=== PATIENT | male | born 1995 | race Caucasian/White ===

== ENCOUNTER → 2019-12-04 14:53 | Outpatient (CLI) | payer BC, SELFPAY ==
[2019-12-04 15:51] LABS: Chloride 100 mmol/L (98-107); Potassium 4.3 mmoL/L (3.5-5.1); Sodium 137 mmol/L (136-145)
[2019-12-04 15:53] LABS: Blood Urea Nitrogen 13 mg/dl (9-20); Estimated Glomerular Filt Rate 141 ml/min (>60); GFR (African American) 171 ML/MIN (>60)
[2019-12-04 15:54] LABS: Alanine Aminotransferase 13 U/L (12-78); Albumin Level 4.9 g/dl (3.5-5.0); Albumin/Globulin Ratio 1.9 (1.1-1.8); Alkaline Phosphatase 55 U/L (38-126); Anion Gap 12.3 mEq/L (5-15); Aspartate Amino Transferase 22 U/L (17-59); Bilirubin,Total 0.3 mg/dl (0.2-1.3); Carbon Dioxide 29 mmol/L (22.0-30.0); Globulin 2.6 g/dL (1.3-3.2); Glucose 92 mg/dl (74-100); Total Protein,Serum 7.5 g/dl (6.3-8.2)
[2019-12-06 06:29] LABS: Hep A Ab, IgM Negative (Negative); Hepatitis B Core Antibody IgM Negative (Negative); Hepatitis B Surface Antigen Negative (Negative)
[2019-12-06 07:38] LABS: HIV Screen 4th Generation wRfx Non Reactive (Non Reactive); Hepatitis C Antibody 0.1 s/co ratio (0.0-0.9)
[2019-12-06 16:10] LABS: Rapid Plasma Reagin Ab Titer Non Reactive (NonRea<1:1)
[2019-12-08 13:59] LABS: Neisseria gonorrhoeae, NAA Negative (Negative)
== END ==
PROVIDERS: Visit Provider Internal Medicine Adolescent Medicine
DX: Z72.51 High risk heterosexual behavior (principal)
CPT/HCPCS: 36415; 80053; 80074; 86592; 86703; 87491; 87591; G0432

== ENCOUNTER 2020-05-28 18:16 | Emergency (ER) | payer BC, SELFPAY ==
[2020-05-28 19:14] VITALS: BP 118/65; PULSE 94; RESP 18; TEMP 37.3; O2SAT 97; BMI 25.0
--- NOTE | 2020-05-28 19:18 | HMH.EDUTC ---
[facility] [place] Disposition Clinical Impression: Strep throat Disposition: Home, Self-Care Condition on Discharge: Good Instructions: Strep Throat, DI for Strep Throat, DI for Fever (Symptom) -- Adult, Preventing the Spread of Coronavirus Discharge Instructions Additional Instructions: *Monitor Temp, Over the counter Motrin or Tylenol as directed/as needed Tylenol every 4 hours and Motrin every 6 hours (as long as your family doctor has told you that you can take it) for fever or pain. and straight to ER if unable to lower temp less than 101.0 after medication given *Warm salt water gargles may help to soothe the throat *Throat Lozenges *Warm fluids like tea with honey may help to soothe the throat *Sleep elevated *Humidifier/Vaporizer *Flonase 2 sprays in each nostril daily but be aware that it may take 2-3 days before you notice improvement You was tested for COVID you can call back to the [facility] on Sunday to see if your test results are back and the result Follow instructions on handout for self quarantine and self isolation while awaiting your test results Your throat swab was sent for culture. Those results are typically sent to your primary care. Be sure to follow up in 2-3 days with your family doctor/primary care physician if no improvement so they can review those result and treat if necessary. If you don?t have a primary care doctor, I recommend you get one but in the mean time, you will have to return to a walk in clinic Follow up IMMEDIATELY for new or worsening symptoms or no Noticeable improvement over the next 48-72 hours. 911 for difficulty breathing or swallowing *If you did not take Penicillin shot or was unable to, start taking antibiotic immediately and make sure that you take it for the FULL length of time although you should start to feel better in 24-48 hours *change toothbrush and toothpaste 24-48 hours after starting to take antibiotics so you do not reinfect yourself Monitor Temp. Tylenol and/or Ibuprofen as needed. ER if fever is no less than 101 despite alternating Tylenol and Ibuprofen * Encourage fluids, water, Gatorade, powerade, pedialyte if infant/toddler/or child *Cold fluids, popsicles and ice cream may feel good on his throat Referrals: Reuben Epstein MD [Primary Care Provider] - As needed Forms: Work/School Release Medical Decision Making - Nael Inquiry Pt receiving controlled substance: No Nael was queried for this patient: No Vital Signs: 05/28/20 19:14 05/28/20 19:19 Temperature 99.1 F 99.1 F Temperature Source Oral Pulse Rate 94 H Pulse Rate [Right] 94 H Respiratory Rate 18 18 Blood Pressure 118/65 Blood Pressure [Right Arm] 118/65 Blood Pressure Mean [Right Arm] 82 Blood Pressure Source [Right Arm] Automatic Cuff Blood Pressure Position [Right Arm] Sitting 02 Sat by Pulse Oximetry 97 Oxygen Delivery Method Room Air - Lab Data Lab results reviewed: Yes: I reviewed the patient's lab results. Lab Results 05/28/20 19:24: Strep Scn Rapid Clinic Positive A Orders (Tests/Meds): ED MEDICATIONS Discontinued Medications Generic Name Dose Route Start Last Admin Trade Name Freq PRN Reason Stop Dose Admin Penicillin G Benzathine 1,200,000 unit 05/28/20 19:34 05/28/20 19:49 Bicillin La 1,200,000 Units/2ml Syringe IM 05/28/20 19:35 1,200,000 unit ONCE ONE Administration Protocol ORDERS Category Date Time Status Covid-19 Nasal PCR Sendout [facility] 05/28/20 19:09 Received Medical Decision Narrative: Patient states that he has taken Bicillin La in the past without reaction or complications No rash after injection patient dc home [facility] HPI - General Stated complaint: covid symptoms Time Seen by Provider: 05/28/20 19:18 Mode of Arrival: Ambulatory Source of Information: Patient Limitations: No Limitations Description of Symptoms (Recalled from Triage Doc. by RN): Exposed to a positive Covid person. Pt c/o of Fever, body aches, head
[2020-05-28 19:19] VITALS: BP 118/65; PULSE 94; RESP 18; TEMP 37.3; O2SAT 97
[2020-05-28 19:27] LABS: UTC Strep Screen (Rapid) Positive (Negative)
[2020-05-30 17:41] LABS: Covid-19 Nasal PCR Sendout UK DETECTED
--- NOTE | 2020-05-30 17:43 | PC.NURSE ---
Patient notified of positive COVID test. Educated patient on the need for quarantine. Also educated patient on increasing fluids and to monitor symptoms.
== END 2020-05-28 20:01 | disposition home or self-care (01) ==
PROVIDERS: Emergency Provider Nurse Practitioner; PCP Internal Medicine Adolescent Medicine
DX: J02.0 Streptococcal pharyngitis (principal); Z20.828 Contact with and (suspected) exposure to other viral communicable diseases
CPT/HCPCS: 87880; 96372; 99202; J0561; U0003

== ENCOUNTER → 2021-09-21 15:39 | Outpatient (CLI) | payer OTHER, SELFPAY | PROVIDERS: Visit Provider Nurse Practitioner | DX: U07.1 COVID-19 (principal) | CPT/HCPCS: C9803; U0003; U0005 ==

== ENCOUNTER 2022-04-08 16:41 | Emergency (ER) | payer BC, SELFPAY ==
[2022-04-08 17:21] LABS: UTC Strep Screen (Rapid) Positive (Negative)
--- NOTE | 2022-04-08 17:24 | HMH.EDUTC ---
[facility] [place] Disposition Clinical Impression: Strep throat, Impetigo Disposition: Home, Self-Care Condition on Discharge: Good Instructions: Strep Throat, DI for Strep Throat, DI for Impetigo Additional Instructions: Drink plenty of fluids. Take tylenol or ibuprofen for pain or fever. Take the medications as directed. Follow up with your regular doctor. GO TO THE ER FOR ANY WORSENING SYMPTOMS Throw your tooth brush away and get a new one. Prescriptions: Brompheniramine/Pseudoephed/Dm [Bromfed Dm Cough Syrup] 5 ml PO Q6HP PRN #240 ml PRN Reason: Cough [facility]: [facility] Ondansetron [Zofran 4mg ODT] 4 mg PO Q8HP PRN #12 tab PRN Reason: Nausea Transmission [facility] Amoxicillin/Potassium Clav [Amox-Clav 875-125 mg Tablet] 1 tab PO BID #20 tab Transmission Status: Received by [facility] Mupirocin [Bactroban 2% Ointment 22gm tube] 1 applicatio TP TID 7 Days #1 gm Transmission Status: Received by [facility] Referrals: Reuben Epstein MD [Primary Care Provider] - Time of Disposition: 17:34 Medical Decision Making - Medical Records Medical records reviewed: No: I reviewed the patient's medical records. - Nael Inquiry Pt receiving controlled substance: No Vital Signs: 04/08/22 17:26 04/08/22 17:35 Temperature 98.6 F 98.6 F Temperature Source Oral Pulse Rate 86 Pulse Rate [Left] 86 Respiratory Rate 18 18 Blood Pressure 137/61 Blood Pressure [Right Arm] 137/61 Blood Pressure Mean [Right Arm] 86 02 Sat by Pulse Oximetry 98 - Lab Data Lab Results 04/08/22 17:13: Strep Scn Rapid Clinic Positive A [facility] [place] HPI - General Stated complaint: EXPOSED SORE THROAT,RIVERA,RUNNY NOSE Time Seen by Provider: 04/08/22 17:24 - History of Present Illness Provider Complaint: He states that he has had a sore throat for the past 2 days. He has had 2 negative covid-19 tests done at his work at [employer]. - Related Data Previous Rx's Medication Instructions Recorded sertraline 100 mg tablet 100 mg PO DAILY 30 Days #90 tab 10/27/21 Amoxicillin/Potassium Clav 1 tab PO BID #20 tab 04/08/22 [Amox-Clav 875-125 mg Tablet] Brompheniramine/Pseudoephed/Dm 5 ml PO Q6HP PRN #240 ml 04/08/22 [Bromfed Dm Cough Syrup] Mupirocin [Bactroban 2% Ointment 1 applicatio TP TID 7 Days #1 gm 04/08/22 22gm tube] Ondansetron [Zofran 4mg ODT] 4 mg PO Q8HP PRN #12 tab 04/08/22 Allergies Allergy/AdvReac Type Severity Reaction Status Date / Time No Known Allergies Allergy Verified 10/27/21 14:53 [facility] History - Hepatitis A Screen Attestation statement:: This patient has been screened for Hepatitis A risk factors. I have reviewed the patient's past medical history: Yes Medical History: Denies:: Cancer, Diabetes Mellitus Type 1, Diabetes Mellitus Type 2, Internal Pacemaker, MRSA Other Surgeries: Yes: No Previous Surgery. No: Pacemaker Amputation: No - Social History Smoking Status: Never smoker Tobacco Type: cigarettes # Packs/Day (cigarettes): 1 Alcohol Intake: never Alcohol Intake Frequency:: holidays/special occasions only Substance Use Type: denies use Occupational Status: employed Housing: house Family Hx:: Non-contributory ROS Obtained: Yes All systems reviewed & no additional complaints - Constitutional Constitutional: Denies chills, Denies fever(s) - Eyes Eyes: Denies eye discharge - ENT Ears, Nose, Mouth, and Throat: Denies sore throat - Musculoskeletal Musculoskeletal: Denies joint pain - Integumentary/Breasts Skin/Breast: Reports as per HPI Physical Exam - General General appearance: alert, in no apparent distress - Head Head exam: atraumatic, normocephalic, normal inspection - Eye Eye exam: Present: normal appearance, PERRL, EOMI - ENT ENT exam: Present: normal exam, normal oropharynx, mucous membranes moist, TM's normal bilaterally, normal e
[2022-04-08 17:26] VITALS: BP 137/61; PULSE 86; RESP 18; TEMP 37; O2SAT 98; BMI 24.4
[2022-04-08 17:35] VITALS: BP 137/61; PULSE 86; RESP 18; TEMP 37
== END 2022-04-08 17:49 | disposition home or self-care (01) ==
PROVIDERS: Emergency Provider Nurse Practitioner Family; PCP Internal Medicine Adolescent Medicine
DX: J02.0 Streptococcal pharyngitis (principal); L01.00 Impetigo, unspecified
CPT/HCPCS: 87880; 99212; G0463